=== PATIENT | male | born 1990 | race Caucasian/White ===

== ENCOUNTER 2023-12-31 09:51 | Emergency (ER) | payer SELFPAY ==
[2023-12-31] MEDS: Acetaminophen/oxyCODONE 325-10 MG Tab PO ONE (10:19)
[2023-12-31] MEDS: methylPREDNISolone Sodium Succinate 125 MG/2 ML SDV IM ONE (10:19)
[2023-12-31] MEDS: Ondansetron 4 MG Tab.DIS PO ONE (10:19)
== END 2023-12-31 11:38 | disposition home or self-care (01) ==
LOC: MW.ED 09:51
DX: M54.41 Lumbago with sciatica, right side (principal); F17.210 Nicotine dependence, cigarettes, uncomplicated; Z86.16 Personal history of COVID-19; Z91.030 Bee allergy status; Z75.8 Other problems related to medical facilities and other health care
CPT/HCPCS: 96372; 99283; A9270; J2919

== ENCOUNTER 2024-01-03 11:44 | Emergency (ER) | payer SELFPAY ==
[2024-01-03] MEDS: Ketorolac 30 MG/ML SDV IM STA (12:03)
== END 2024-01-03 12:44 | disposition home or self-care (01) ==
LOC: MW.ED 11:44
DX: M54.41 Lumbago with sciatica, right side (principal); Z75.8 Other problems related to medical facilities and other health care; Z91.030 Bee allergy status; Z79.899 Other long term (current) drug therapy; Z86.16 Personal history of COVID-19
CPT/HCPCS: 96372; 99283; J1885; J3360

== ENCOUNTER 2024-03-06 15:12 | Emergency (ER) | payer SELFPAY | END 2024-03-06 16:00 | disposition left against medical advice (07) | LOC: MW.ED 15:12 | DX: Z53.21 Procedure and treatment not carried out due to patient leaving prior to being seen by health care provider (principal) ==